=== PATIENT | male | born 1970 | race Two or more races ===

== ENCOUNTER → 2024-12-23 | Outpatient (CLI) | payer MEDICAID, SELFPAY ==
--- NOTE | 2024-12-23 08:51 | XR_ITS ---
EXAMINATION: Ankle, right 3 views . Technique: Ankle AP, oblique, lateral 3 views Date and time of exam: December 23, 2024 0855 hrs. Indications: Injury to the ankle one week ago, ankle pain. Findings: No ankle fracture or dislocation 10 mm plantar bony calcaneal spur Impression: No fracture or dislocation
== END | disposition home or self-care (01) ==
PROVIDERS: PCP Student in an Organized Health Care Education/Training Program; Referring Provider Student in an Organized Health Care Education/Training Program; Visit Provider Student in an Organized Health Care Education/Training Program
DX: S99.911A Unspecified injury of right ankle, initial encounter (principal); X58.XXXA Exposure to other specified factors, initial encounter
CPT/HCPCS: 73610